=== PATIENT | female | born 1995 | race Two or more races ===

== ENCOUNTER 2021-02-26 01:30 | Emergency (ER) | payer MEDICAID, OTHER ==
[~2021-02-26] VITALS: Ht 149.9 cm; Wt 72.6 kg
[2021-02-26 04:12] LABS: Basophils # (auto) 0.1 10 ^3/uL (0-0.2); Basophils % (auto) 0.9 % (0.0-2.0); Eosinophils # (auto) 0.1 10 ^3/uL (0-0.8); Eosinophils % (auto) 1.7 % (0.0-7.0); Hematocrit 40.2 % (36.0-46.0); Hemoglobin 13.8 g/dL (12.2-16.2); Lymphocytes # (auto) 4.2 10 ^3/uL (0.4-5.4); Lymphocytes % (auto) 49.3 % (10.0-50.0); Mean Corpuscular Hemoglobin 29.5 pg (28.0-32.0); Mean Corpuscular Hgb Conc. 34.3 g/dL (32.0-36.0); Monocytes # (auto) 0.5 10 ^3/uL (0-1.3); Monocytes % (auto) 6.1 % (0.0-12.0); Neutrophils # (auto) 3.6 10 ^3/uL (1.6-8.6); Nucleated Red Blood Cells % 0.3 %; Red Blood Cells 4.68 10^6/uL (4.0-5.20); Red Cell Distribution Width 13.9 % (11.8-14.3); White Blood Cell 8.5 10^3/uL (4.4-10.8)
[2021-02-26 04:17] LABS: Potassium 3.6 mmol/L (3.5-5.1)
[2021-02-26 04:23] LABS: Albumin 3.5 g/dL (3.4-5.0); BUN/Creatinine Ratio 16.7; Bilirubin, Total 0.2 mg/dL (0.2-1.0); Calcium 8.6 mg/dL (8.5-10.1)
[2021-02-26 05:18] LABS: Urine Bacteria FEW /hpf (None Seen); Urine Blood Negative /uL (Negative); Urine Mucus FEW (None Seen); Urine Specific Gravity 1.019 (1.001-1.035); Urine WBC 28 /hpf (0 - 5)
[2021-02-26] MEDS ORDERED: DIPHENOXYLATE W/ATROPINE 2.5 MG TAB PO ONE (06:45)
[2021-02-26] MEDS ORDERED: SODIUM CHLORIDE 0.9% 1,000 ML IV ONE (06:45)
[2021-02-26 08:59] VITALS: BP 128/76
== END 2021-02-26 09:04 | disposition home or self-care (01) ==
LOC: ER 01:33
DX: K52.9 Noninfective gastroenteritis and colitis, unspecified (principal); N39.0 Urinary tract infection, site not specified
CPT/HCPCS: 36415; 80053; 81001; 84484; 85025; 96360; 99283; J7030

== ENCOUNTER 2023-01-29 13:40 | Emergency (ER) | payer MEDICAID ==
[~2023-01-29] VITALS: Ht 149.9 cm; Wt 80.4 kg
[2023-01-29 13:40] VITALS: BP 114/71; PULSE 102; RESP 16; TEMP 98.7; O2SAT 99
[2023-01-29 15:24] LABS: Basophils # (auto) 0 10 ^3/uL (0-0.2); Basophils % (auto) 0.2 % (0.0-2.0); Eosinophils # (auto) 0.1 10 ^3/uL (0-0.8); Eosinophils % (auto) 1.3 % (0.0-7.0); Hematocrit 42.1 % (36.0-46.0); Hemoglobin 14.1 g/dL (12.2-16.2); Lymphocytes # (auto) 4.4 10 ^3/uL (0.4-5.4); Lymphocytes % (auto) 41.9 % (10.0-50.0); Mean Corpuscular Hemoglobin 29.1 pg (28.0-32.0); Mean Corpuscular Hgb Conc. 33.5 g/dL (32.0-36.0); Mean Corpuscular Volume 86.9 fL (80.0-100.0); Monocytes # (auto) 0.7 10 ^3/uL (0-1.3); Monocytes % (auto) 6.4 % (0.0-12.0); Neutrophils # (auto) 5.3 10 ^3/uL (1.6-8.6); Neutrophils % (auto) 50.2 % (37.0-80.0); Nucleated Red Blood Cells % 0.1 %; Red Blood Cells 4.85 10^6/uL (4.0-5.20); Red Cell Distribution Width 14.9 % (11.8-14.3); White Blood Cell 10.6 10^3/uL (4.4-10.8)
[2023-01-29 16:40] LABS: Urine Bacteria FEW /hpf (None Seen); Urine Blood 1+ /uL (Negative); Urine Budding Yeast OCCASIONAL /hpf (None Seen); Urine Clarity HAZY (Clear); Urine Color Yellow (Yellow); Urine Protein, UAD Negative (Negative); Urine Specific Gravity 1.023 (1.001-1.035); Urine Urobilinogen Normal (Negative); Urine WBC 5 /hpf (0 - 5)
== END 2023-01-29 16:35 | disposition home or self-care (01) ==
LOC: ER 13:40
DX: O20.0 Threatened abortion (principal); Z3A.00 Weeks of gestation of pregnancy not specified
CPT/HCPCS: 36415; 76801; 76817; 81001; 81025; 84702; 85025

== ENCOUNTER 2023-02-05 12:24 | Emergency (ER) | payer MEDICAID ==
[~2023-02-05] VITALS: Ht 149.9 cm; Wt 80.2 kg
[2023-02-05 12:35] VITALS: BP 116/73; PULSE 78; RESP 16; O2SAT 99
[2023-02-05 13:12] LABS: Urine Bacteria NONE SEEN /hpf (None Seen); Urine Blood 3+ /uL (Negative); Urine Clarity HAZY (Clear); Urine Color Yellow (Yellow); Urine Mucus FEW (None Seen); Urine Protein, UAD 1+ (Negative); Urine WBC 6 /hpf (0 - 5)
[2023-02-05 13:15] LABS: Basophils # (auto) 0 10 ^3/uL (0-0.2); Basophils % (auto) 0.3 % (0.0-2.0); Eosinophils # (auto) 0.1 10 ^3/uL (0-0.8); Eosinophils % (auto) 0.8 % (0.0-7.0); Hematocrit 41.9 % (36.0-46.0); Hemoglobin 14.1 g/dL (12.2-16.2); Lymphocytes # (auto) 3.3 10 ^3/uL (0.4-5.4); Lymphocytes % (auto) 36.7 % (10.0-50.0); Mean Corpuscular Hemoglobin 29.3 pg (28.0-32.0); Mean Corpuscular Hgb Conc. 33.8 g/dL (32.0-36.0); Mean Corpuscular Volume 86.9 fL (80.0-100.0); Monocytes # (auto) 0.4 10 ^3/uL (0-1.3); Monocytes % (auto) 4.9 % (0.0-12.0); Neutrophils # (auto) 5.2 10 ^3/uL (1.6-8.6); Neutrophils % (auto) 57.3 % (37.0-80.0); Nucleated Red Blood Cells % 0.1 %; Red Blood Cells 4.82 10^6/uL (4.0-5.20); Red Cell Distribution Width 14.5 % (11.8-14.3); White Blood Cell 9.1 10^3/uL (4.4-10.8)
[2023-02-05 13:53] LABS: Alanine Aminotransferase 17 U/L (7-40); Albumin 4.6 g/dL (3.2-4.8); Alkaline Phosphatase 78 U/L (46-116); Anion Gap 8 (5-15); Aspartate Aminotransferase 22 U/L (13-40); BUN/Creatinine Ratio 11.9 (10.0-20.0); Bilirubin, Total 0.5 mg/dL (0.2-1.0); Blood Urea Nitrogen 7 mg/dL (9-23); Calcium 9.3 mg/dL (8.5-10.1); Carbon Dioxide 23 mmol/L (20-30); Chloride 106 mmol/L (98-107); Glucose 115 mg/dL (74-106); Potassium 3.5 mmol/L (3.5-5.1); Sodium 137 mmol/L (136-145); Total Protein 7.8 g/dL (5.7-8.2)
[2023-02-05] MEDS ORDERED: CEPH250C PO (16:16)
== END 2023-02-05 17:17 | disposition home or self-care (01) ==
LOC: ER 12:24
DX: O23.41 Unspecified infection of urinary tract in pregnancy, first trimester (principal); R10.2 Pelvic and perineal pain; N39.0 Urinary tract infection, site not specified; E03.9 Hypothyroidism, unspecified; Z79.899 Other long term (current) drug therapy; Z3A.01 Less than 8 weeks gestation of pregnancy
CPT/HCPCS: 36415; 76801; 76817; 80053; 81001; 84702; 85025

== ENCOUNTER 2024-11-12 14:18 | Emergency (ER) | payer MEDICAID ==
[~2024-11-12] VITALS: Ht 149.9 cm; Wt 82.5 kg
[~2024-11-12 14:18] MED LIST: CEPH250C PO
[2024-11-12 15:54] LABS: Urine Protein, UAD Negative (Negative)
--- NOTE | 2024-11-12 16:04 | ED.PDOC ---
History of Present Illness HPI Comments 29 y/o F presents with 2x week history of nonradiating, lower abdominal pain. Patient reports unprovoked, atraumatic, and gradual onset of symptoms. Pain is constant but waning and cramping in quality. She rates it a 6.5/10 in severity. Patient mentions on, recently, discovering on being 3x weeks ago with her second ([id number]). Previous is reported to have been fine without complications carried to full-term and delivered vaginally. No nausea, vomiting, dysuria, or further associated symptoms. Chief Complaint: Pelvic Pain Time Seen by MD: 15:45 Primary Care Provider: HUGO Mas Notes: Nurses Notes, Medications, Allergies Allergies: Coded Allergies: NO KNOWN ALLERGIES (Unverified , 02/26/21) Home Meds Active Scripts Cephalexin (KEFLEX CAPSULE) 250 Mg Cp, 250 MG PO TID for 7 Days, #21 BOT Prov:JOSHUA VANN MD 02/05/23 Information Source: Patient Mode of Arrival: Ambulatory Severity: Moderate Timing: Weeks Duration: Since onset Prehospital treatment: None Past Medical History PAST MEDICAL HISTORY: Thyroid Surgical History: Denies all surgeries RESEARCH ENGINEER MARINE EQUIPMENT History: No Pertinent RESEARCH ENGINEER MARINE EQUIPMENT History Family History Family History: Reviewed,noncontributory to illness Social History Smoker: Non-Smoker Alcohol: Denies ETOH Use Drugs: Denies Drug Use Lives In: Home All Other Systems: Reviewed and Negative (As per HPI) Physical Exam General Appearance: No Apparent Distress HEENT: Normal ENT Inspection, PERRL/EOMI Neck: Full Range of Motion, Non-Tender, Normal, Normal Inspection Respiratory: Chest Non-Tender, Lungs Clear, No Accessory Muscle Use, No Respiratory Distress, Normal Breath Sounds Cardiovascular: No Edema, No JVD, No Murmur, No Gallop, Normal Peripheral Pulses, Regular Rate/Rhythm Breast Exam: Deferred Gastrointestinal: No Organomegaly, Non Tender, No Pulsatile Mass, Normal Bowel Sounds, Soft Genitalia: Deferred Pelvic: Deferred Rectal: Deferred Extremities: No calf tenderness, Normal capillary refill, Normal inspection, Normal range of motion, Non-tender, No pedal edema Neurologic: Alert, gift wrapper II-XII nml as Tested, No Motor Deficits, Normal Affect, Normal Mood, No Sensory Deficits Cerebellar Function: Normal Reflexes: Normal Skin: Dry, Normal Color, Warm Lymphatic: No Adenopathy Was a procedure done? Was a procedure done?: No Differential Dx Considerations may include: at risk , PID, ovarian cysts, ovarian torsion, diverticulitis, gastritis, UTI, among others X-Ray, Labs, Meds, VS Vital Signs Date Time Temp Pulse Resp B/P (MAP) Pulse Ox O2 Delivery O2 Flow Rate FiO2 11/12/24 14:20 97.5 79 16 150/81 100 97.5 Lab Test 11/12/24 15:40 Range/Units Urine Color Light-yellow Yellow Urine Clarity Clear Clear Urine pH 6.0 5.0-9.0 Urine Specific [place] 1.027 1.001-1.035 Urine Protein Negative Negative Urine Ketones Negative Negative Urine Blood Negative Negative /uL Urine Nitrite Negative Negative Urine Bilirubin Negative Negative Urine Urobilinogen Normal Negative mg/dL Urine Leukocyte Esterase 1+ Negative /uL Urine RBC 2 0 - 4 /hpf Urine Microscopic WBC 3 0-5 /HPF Urine Squamous Epithelial Cells Few <5 /hpf Urine Bacteria None seen None Seen /hpf Urine Mucus Few None Seen Urine Glucose Normal Normal mg/dL X-Ray, Labs, Meds, VS Comment Course in the emergency department eventful patient came in complaining of pelvic pain she is two months The urine shows 1+ leukocyte esterase patient is on Keflex Physical exam is normal patient we will need to follow up with the retail delivery driver for ultrasound Time of 1ST Reevaluation: 16:20 Reevaluation 1ST: Unchanged Time of 2ND Reevaluation: 16:13 Reevaluation 2ND: Improved Consultation: PCP, credit resolution representative Patient Education/Counseling: Diagnosis, Treatment, Prognosis, Need For Follow Up Family Education/Counseling: Diagnosis, Treatment, Prognosis, Need For Follow Up, No Family Present SEPSIS Sepsis Screen Date sepsis recognized/suspect: Nov 12, 2024 Time Sepsis recognized/suspect: 1423 Recent Procedure: No On Antibiotic Therapy: No Respiratory Rate >20: No Heart Rate >90: No Temp<36 C (96.8 F) or >38.3 C: No SBP <90 or MAP <65 mmHG: No New Acute Mental Status Change: No Is the patient on CPAP, BIPAP,: No Vital Signs Date Time Temp Pulse Resp B/P (MAP) Pulse Ox O2 Delivery O2 Flow Rate FiO2 11/12/24 14:20 97.5 79 16 150/81 100 97.5 Departure 1 Departure Time of Disposition: 16:09 Impression: Primary Impression: Qualified Codes: Z3A.01 - Less than 8 weeks gestation of Additional Impressions: UTI (urinary tract infection) Qualified Codes: N30.00 - Acute cystitis without hematuria Musculoskeletal pain Disposition: 01 HOME / SELF CARE / HOMELESS Condition: Good Additional Instructions: Continue present medication Discharged With: Self Critical Care Note Critical Care Time?: No Stability Stability form required: No Heart Score Heart Score: Heart Score Response (Comments) Value History N/A 0 EKG N/A 0 Age <45 0 Risk Factors No known risk factors 0 Troponin N/A 0 Total 0 I personally scribed for MARIA D GOMEZ MD ([email or web address]) on 11/12/24 at 16:04. Electronically submitted by Pacheco Shaw ([email or web address]). MARIA D GOMEZ MD Nov 12, 2024 16:04
--- NOTE | 2024-11-12 16:05 | ED.PDOC ---
General Chief Complaint: Pelvic Pain Time Seen by MD: 14:57 Primary Care Provider: HUGO Allergies: Coded Allergies: NO KNOWN ALLERGIES (Unverified , 02/26/21) Home Meds Active Scripts Cephalexin (KEFLEX CAPSULE) 250 Mg Cp, 250 MG PO TID for 7 Days, #21 BOT Prov:JOSHUA VANN MD 02/05/23 Mode of Arrival: Ambulatory Past Medical History PAST MEDICAL HISTORY: Thyroid Surgical History: Denies all surgeries GEOTECHNICAL ENGINEERING TECHNICIAN History: No Pertinent GEOTECHNICAL ENGINEERING TECHNICIAN History Family History Family History: Reviewed,noncontributory to illness Social History Smoker: Non-Smoker Alcohol: Denies ETOH Use Drugs: Denies Drug Use Lives In: Home Physical Exam General Appearance: No Apparent Distress HEENT: Normal ENT Inspection, Pharynx Normal, TMs Normal Neck: Full Range of Motion, Non-Tender, Normal, Normal Inspection Respiratory: Chest Non-Tender, Lungs Clear, No Accessory Muscle Use, No Respiratory Distress, Normal Breath Sounds Cardiovascular: No Edema, No JVD, No Murmur, No Gallop, Normal Peripheral Pulses, Regular Rate/Rhythm Breast Exam: Deferred Gastrointestinal: No Organomegaly, Non Tender, No Pulsatile Mass, Normal Bowel Sounds, Soft Genitalia: Deferred Pelvic: Deferred Rectal: Deferred Extremities: No calf tenderness, Normal capillary refill, Normal inspection, Normal range of motion, Non-tender, No pedal edema Neurologic: Alert, electronics department manager II-XII nml as Tested, No Motor Deficits, Normal Affect, Normal Mood, No Sensory Deficits Cerebellar Function: Normal Reflexes: Normal Skin: Dry, Normal Color, Warm Peripheral Pulses: 1+ carotid (R), 1+ carotid (L) Lymphatic: No Adenopathy Was a procedure done? Was a procedure done?: No Differential Diagnosis Kidney stone (Female): Musculoskeletal pain Kidney stone (Male): N/A Penile/Scrotal: N/A Urinary Problem (Male): N/A Urinary Problem (Female): UTI X-Ray, Labs, Meds, VS Vital Signs Date Time Temp Pulse Resp B/P (MAP) Pulse Ox O2 Delivery O2 Flow Rate FiO2 11/12/24 17:00 72 18 97 Room Air 11/12/24 17:00 98.0 72 18 136/74 (94) 97 98.0 11/12/24 14:20 97.5 79 16 150/81 100 97.5 Lab Test 11/12/24 15:40 Range/Units Urine Color Light-yellow Yellow Urine Clarity Clear Clear Urine pH 6.0 5.0-9.0 Urine Specific [place] 1.027 1.001-1.035 Urine Protein Negative Negative Urine Ketones Negative Negative Urine Blood Negative Negative /uL Urine Nitrite Negative Negative Urine Bilirubin Negative Negative Urine Urobilinogen Normal Negative mg/dL Urine Leukocyte Esterase 1+ Negative /uL Urine RBC 2 0 - 4 /hpf Urine Microscopic WBC 3 0-5 /HPF Urine Squamous Epithelial Cells Few <5 /hpf Urine Bacteria None seen None Seen /hpf Urine Mucus Few None Seen Urine Glucose Normal Normal mg/dL X-Ray, Labs, Meds, VS Comment Patient came in with pelvic pain The beta hCG was very low patient exam is normal She will need to go follow up with your PCP and telecommunications analyst Time of 1ST Reevaluation: 14:57 Reevaluation 1ST: Unchanged Time of 2ND Reevaluation: 15:40 Reevaluation 2ND: Improved Consultation: PCP, jigger machine operator Patient Education/Counseling: Diagnosis, Treatment, Prognosis, Need For Follow Up Family Education/Counseling: Diagnosis, Treatment, Prognosis, Need For Follow Up, No Family Present SEPSIS Sepsis Screen Date sepsis recognized/suspect: Nov 12, 2024 Time Sepsis recognized/suspect: 1423 Recent Procedure: No On Antibiotic Therapy: No Respiratory Rate >20: No Heart Rate >90: No Temp<36 C (96.8 F) or >38.3 C: No SBP <90 or MAP <65 mmHG: No New Acute Mental Status Change: No Is the patient on CPAP, BIPAP,: No Vital Signs Date Time Temp Pulse Resp B/P (MAP) Pulse Ox O2 Delivery O2 Flow Rate FiO2 11/12/24 17:00 72 18 97 Room Air 11/12/24 17:00 98.0 72 18 136/74 (94) 97 98.0 11/12/24 14:20 97.5 79 16 150/81 100 97.5 Departure 1 Departure Time of Disposition: 16:05 Impression: Primary Impression: Additional Impressions: Musculoskeletal pain Vaginal spotting Disposition: 01 HOME / SELF CARE / HOMELESS Condition: Fair Additional Instructions: Follow up with your coin box collector Discharged With: Self Critical Care Note Critical Care Time?: No Stability Stability form required: No Heart Score Heart Score: Heart Score Response (Comments) Value History N/A 0 EKG N/A 0 Age <45 0 Risk Factors No known risk factors 0 Troponin N/A 0 Total 0 MARIA D GOMEZ MD Nov 12, 2024 16:05
[2024-11-12 17:00] VITALS: BP 136/74; PULSE 72; RESP 18; TEMP 98; O2SAT 97
== END 2024-11-12 17:15 | disposition home or self-care (01) ==
LOC: ER 14:27
DX: O26.851 Spotting complicating pregnancy, first trimester (principal); O26.891 Other specified pregnancy related conditions, first trimester; M79.18 Myalgia, other site; Z3A.09 9 weeks gestation of pregnancy
CPT/HCPCS: 81001

== ENCOUNTER 2025-01-11 06:02 | Observation (INO) | payer MEDICAID ==
[~2025-01-11] VITALS: Ht 170.2 cm; Wt 88.6 kg
--- NOTE | 2025-01-11 06:09 | ED.PDOC ---
TOP TRIMMER HPI Comments Initial Vitals BP: 121/84 HR: 84 RR: 17 O2: 96% Temp: 98.6F Past Medical History: Thyroid Disease Past Surgical History: Denies Social History: Denies ETOH, smoking, and drug use. Medications: Reviewed Allergies: NKDA HPI: Poor Historian. 29-year-old female brought in by ambulance from home for lower abdominal pain with the associated mild vaginal bleed. His pain started last night. No recent intercourse. No history of STDs. Patient is 16 weeks gestation with no past medical history. Patient has seen her OB Gyne doctor a week and a half ago and he is on cares. Patient denies any use of drugs or alcohol. REVIEW OF SYSTEMS: CONSTITUTIONAL: Denies acute: fever, diaphoresis, chills, generalized weakness. HEAD: Denies acute: headache, photophobia Eyes: Denies acute: Double vision, vision loss, eye pain, eye discharge. EARS: Denies acute: tinnitus, hearing loss, ear discharge, ear pain, THROAT: Denies acute: sore throat, swelling, difficulty swallowing , pain with swallowing, change in voice. NECK: Denies acute: neck pain, neck swelling, stiff neck. HEART: Denies acute : chest pain, palpitations, LUNGS: Denies acute: SOB, wheezing, cough, hemoptysis ABDOMEN: Denies acute: Nausea, Vomiting, diarrhea, melena , hematemesis, hematochezia SKIN: Denies acute: rash, redness, lesions, itchiness. EXTREMITIES: Denies acute: calf pain, numbness, tingling, weakness, denies pain in extremity. Denies acute: Low back pain. Neuro: Denies acute: focal neurological deficit, motor or sensory focal neurological deficit, tremors, seizure like activity, confusion, dizziness, change in mental status, loss of bowel or bladder function, cauda equina like symptoms. : Denies acute: dysuria, hematuria, flank pain, increase in urinary frequency. PSYCH: Denies acute: hallucination, suicidal ideation, homicidal ideation. FEMALE: Denies acute: foul odor, unusual discharge. PHYSICAL EXAM: General: ----mild---acute distress, awake and alert. Head: normocephalic, atraumatic. Neck: supple, trachea is midline, no swelling. Throat: Normal phonation. Eyes:, no erythema, no purulent discharge, no proptosis, no icterus. Heart: regular rate, regular rhythm, no significant murmur appreciated. Lungs: no apparent respiratory distress, Able to speak in full sentences. No wheezing, no rhonchi, no crackles. No stridors Clear to auscultation bilaterally. Abdomen: non tender to palpation, non distended, soft, no guarding, no rebound, + bowel sounds. Neuro: Awake, Alert, oriented to name, self, situation, follows commands GCS=15. Speech is normal. Skin: no petechia, no purpura, no cyanosis, non-pale, not jaundice. Lower extremities: --no - Pitting edema no deformity, no focal swelling, no calf TTP. Makes eye contact. moves all four extremities. Face: no apparent facial droop. ED COURSE: DISCLAIMER: This medical document was created using an electronic medical record system with voice recognition software and computerized dictation system. Although this document has been carefully reviewed, there might still be some phonetic and typographical errors. Occasional wrong-word or "sound-alike" substitutions may have occurred due to the inherent limitations of voice recognition software. These areas are purely typographical due to imperfections of the software programs and do not reflect any compromise in the patient's medical care. Please read the chart carefully and recognize, using context, where these substitutions have occurred. Time Seen by MD: 06:06 Reviewed Notes: Medications, Allergies Allergies: Coded Allergies: NO KNOWN ALLERGIES (Unverified , 02/26/21) Home Meds Active Scripts Docusate Sodium (Colace) 100 Mg Cap, 1 CAP PO BID PRN, #30 CAP Prov:JD MANCUSO [facility] 01/11/25 Hydrocodone-Acetaminophen (Hydrocodone Bitartrate/AC 5-325 mg) 1 Tab Tab, 1 TAB PO Q6HR PRN for 5 Days, #20 TAB Prov:JD MANCUSO 01/11/25 Ibuprofen (Ibuprofen) 800 Mg Tab, 1 TAB PO TID, #60 TAB 0 Refills Prov:JD MANCUSO 01/11/25 Discontinued Scripts Cephalexin (KEFLEX CAPSULE) 250 Mg Cp, 250 MG PO TID for 7 Days, #21 BOT Prov:JOSHUA VANN MD 02/05/23 Information Source: Patient, Emergency Med Personnel Mode of Arrival: EMS Was a procedure done? Was a procedure done?: No Differential Diagnosis (CARRIER OPERATOR) Vaginal Bleeding: - Complete, - Incomplete, - Inevitable, - Missed, - Threatened, Abruptio Placentae, Blood Loss Anemia, Dysmenorrhea, Ectopic , Hormonal, Menorrhagia, Menometrorrhagia, Menstrual Bleeding, Myomatous Uterus, PID, Placenta Previa, Precipitous Hct, Trauma X-Ray, Labs, Meds, VS Vital Signs Date Time Temp Pulse Resp B/P (MAP) Pulse Ox O2 Delivery O2 Flow Rate FiO2 01/11/25 06:05 98.6 84 17 121/84 96 98.6 Lab Test 01/11/25 06:31 Range/Units White Blood Count 10.7 4.4-10.8 10^3/uL Red Blood Count 4.61 4.0-5.20 10^6/uL Hemoglobin 13.3 12.2-16.2 g/dL Hematocrit 38.5 36.0-46.0 % Mean Corpuscular Volume 83.6 80.0-100.0 fL Mean Corpuscular Hemoglobin 29.0 28.0-32.0 pg Mean Corpuscular Hemoglobin Concent 34.7 32.0-36.0 g/dL Red Cell Distribution Width 15.0 H 11.8-14.3 % Platelet Count 339 140-450 10^3/uL Mean Platelet Volume 8.1 6.9-10.8 fL Neutrophils (%) (Auto) 59.2 37.0-80.0 % Lymphocytes (%) (Auto) 33.5 10.0-50.0 % Monocytes (%) (Auto) 4.2 0.0-12.0 % Eosinophils (%) (Auto) 2.8 0.0-7.0 % Basophils (%) (Auto) 0.3 0.0-2.0 % Neutrophils # (Auto) 6.3 1.6-8.6 10 ^3/uL Lymphocytes # (Auto) 3.6 0.4-5.4 10 ^3/uL Monocytes # (Auto) 0.5 0-1.3 10 ^3/uL Eosinophils # (Auto) 0.3 0-0.8 10 ^3/uL Basophils # (Auto) 0 0-0.2 10 ^3/uL Nucleated Red Blood Cells 0.0 % Sodium Level 137 136-145 mmol/L Potassium Level 3.9 3.5-5.1 mmol/L Chloride Level 105 98-107 mmol/L Carbon Dioxide Level 19 L 20-31 mmol/L Anion Gap 13 5-15 Blood Urea Nitrogen 8 L 9-23 mg/dL Creatinine 0.49 L 0.550-1.02 mg/dL Glomerular Filtration Rate Calc 129 >90 mL/min BUN/Creatinine Ratio 16.3 10.0-20.0 Serum Glucose 105 74-106 mg/dL Calcium Level 8.8 8.7-10.4 mg/dL Total Bilirubin 0.2 0.2-1.0 mg/dL Aspartate Amino Transferase (AST) 24 13-40 U/L Alanine Aminotransferase (ALT) 13 7-40 U/L Alkaline Phosphatase 97 46-116 U/L Total Protein 7.0 5.7-8.2 g/dL Albumin 4.0 3.2-4.8 g/dL Beta HCG, Quantitative 92715.0 H 1.5-4.2 mIU/mL [place] [id number] Ph: [phone] DIAGNOSTIC IMAGING Diagnostic Imaging Report : [id number] Signed PATIENT: TERESE HAYES ACCT: [id number] UNIT: [id number] : 1995 LOC: [facility] ROOM / BED: [facility] / A AGE / SEX: 29 / F ADM STATUS: ADM IN SERVICE [id number] ORDERING PHYSICIAN: ROMI CHRISTIANSON DO PROCEDURE(s): OBUS - OB ULTRASOUND COMP GTR 14 WKS REASON: vag bleed 16 weeks ORDER NUMBER(s): [id number], ACCESSION NUMBER(s): [id number] LIMITED OB ULTRASOUND > 14 WKS: HISTORY: vag bleed 16 weeks TECHNIQUE: Multiple real-time grayscale images of the gravid uterus with duplex Doppler color flow and M-mode spectral analysis. FINDINGS: There is an intrauterine gestation which measures 15 weeks 0 days based on composite averages of the BPD, head circumference, abdominal circumference and femur length. The fetus is in breech position. Estimated weight 102 grams. heart rate 106 beats per minute SALMA is not measured Cervix is open and contains a portion of the fetus including the neck and body, down to the feet Posterior placenta which is incompletely evaluated. IMPRESSION: 1. Single living intrauterine gestation measuring 15 weeks 0 days with heart rate of 106 bpm. 2. The cervix is open and contains majority of the body down to the feet. ATED BY: NADIYA NAIDU MD DICTATED DATE/TIME: 01/11/25743 SIGNED BY: NADIYA NAIDU MD SIGNED DATE/TIME: 01/11/25743 CC: Time of 1ST Reevaluation: 07:08 Reevaluation 1ST: Unchanged Time of 2ND Reevaluation: 07:13 (The recycling technician came and said that the patient cervix is open and the feet is sticking out. OB Gyne was consulted. They said to send the patient directly to [facility]. ) Patient Education/Counseling: Diagnosis, Treatment Family Education/Counseling: No Family Present Comments MDM: patient presented with the above HPI.------workup was initiated. patient was found with the above mentioned diagnosis. the following medications were ordered: please refer to order lists of meds and tests obtained by myself Dr. Christianson. Patient ED course and VS have been stabilized. Patient has been reassessed in the ED and remained in a stable condition. Pertinent incidental findings were discussed with the patient and/or family. Patient/family voices understanding and is agreeable with plan. Patient has been observed in the ED adequate length of time to insure improvement/stability. Escalation of care considered: Consideration of escalation to observation or admission OB Gyne was consulted stat. Patient was taken to labor and delivery. Subsequently a D&C was performed. Patient was ADMITTED to the medicine team for further evaluation and treatment of their presentation. All the reports of any imaging studies that were ordered by myself were reviewed by myself. Departure 1 Departure Time of Disposition: 07:13 Impression: Primary Impression: Threatened in first trimester Additional Impression: Vaginal bleeding during Disposition: ADMITTED INPATIENT Admit to: Tele Condition: Guarded e-Prescriptions Docusate Sodium (Colace) 100 Mg Cap 1 CAP PO BID PRN, #30 CAP Prov: JD MANCUSO [facility] 01/11/25 Hydrocodone-Acetaminophen (Hydrocodone Bitartrate/AC 5-325 mg) 1 Tab Tab 1 TAB PO Q6HR PRN for 5 Days, #20 TAB Prov: JD MANCUSO [facility] 01/11/25 Ibuprofen (Ibuprofen) 800 Mg Tab 1 TAB PO TID, #60 TAB 0 Refills Prov: JD MANCUSO [facility] 01/11/25 Discharged With: Self Critical Care Note Critical Care Time?: Yes (1 hr-critical care time only) I personally scribed for ROMI CHRISTIANSON DO ([email or web address]) on 01/11/25 at 06:40. Electronically submitted by Yan Adams ([email or web address]). ROMI CHRISTIANSON DO Jan 11, 2025 06:09
[2025-01-11 07:01] LABS: Hematocrit 38.5 % (36.0-46.0); Hemoglobin 13.3 g/dL (12.2-16.2); Mean Corpuscular Hemoglobin 29.0 pg (28.0-32.0); Mean Corpuscular Volume 83.6 fL (80.0-100.0); Nucleated Red Blood Cells % 0.0 %
[2025-01-11 07:26] LABS: BUN/Creatinine Ratio 16.3 (10.0-20.0)
[2025-01-11 07:27] LABS: Alanine Aminotransferase 13 U/L (7-40); Albumin 4.0 g/dL (3.2-4.8); Alkaline Phosphatase 97 U/L (46-116); Anion Gap 13 (5-15); Blood Urea Nitrogen 8 mg/dL (9-23); Calcium 8.8 mg/dL (8.7-10.4); Carbon Dioxide 19 mmol/L (20-31); Chloride 105 mmol/L (98-107); Glucose 105 mg/dL (74-106); Potassium 3.9 mmol/L (3.5-5.1); Sodium 137 mmol/L (136-145); Total Protein 7.0 g/dL (5.7-8.2)
[2025-01-11 07:45] LABS: Bilirubin, Total 0.2 mg/dL (0.2-1.0)
[2025-01-11] MEDS ORDERED: BUTORPHANOL TARTRATE 2 MG/1 ML VIAL IV PRN (07:45)
--- NOTE | 2025-01-11 07:46 | DVH ---
LIMITED OB ULTRASOUND > 14 WKS: HISTORY: vag bleed 16 weeks TECHNIQUE: Multiple real-time grayscale images of the gravid uterus with duplex Doppler color flow an d M-mode spectral analysis. FINDINGS: There is an intrauterine gestation which measures 15 weeks 0 days based on composite averages of the BPD, head circumference, abdominal circumference and femur length. The fetus is in breech position. Estimated weight 102 grams. heart rate 106 beats per minute SALMA is not measured Cervix is open and contains a portion of the fetus including the neck and body, down to the feet Posterior placenta which is incompletely evaluated. IMPRESSION: 1. Single living intrauterine gestation measuring 15 weeks 0 days with heart rate of 106 bpm. 2. The cervix is open and contains majority of the body down to the feet.
[2025-01-11] MEDS: BUTORPHANOL TARTRATE 2 MG/1 ML VIAL IV PRN (07:54)
[2025-01-11] MEDS: LACTATED RINGER'S 1,000 ML IV SCH (07:54)
[2025-01-11] MEDS: PHISODERM TOP SOLN 240ML BTL TOP PRN (08:19)
[2025-01-11] MEDS: ceFAZolin 2 GM/D5W50ml 50 ML IV ONE (08:19)
[2025-01-11] MEDS: WITCH HAZEL-GLYCERIN PAD TOP PRN (08:19)
[2025-01-11] MEDS: DERMOPLAST 60ML BOTTLE TOP PRN (08:19)
--- NOTE | 2025-01-11 08:21 | DVHHP2 ---
OB CC & HPI Date Date of Admission: Jan 11, 2025 Patient Identification: : 2 Para: 1 EDC: Jun 25, 2025 EGA: 16wks Chief Complaints: Reason for admission: labor, vaginal bleeding Admission Nurse Assessment Rev: No History of Present Complaints pt presents with vag bleeding and abd pain .pelvic us reveals breech baby in vag cervix fully dilated.pt denies any issues with preg Past Medical History Cardiac: No pertinent Hx Pulmonary: No pertinent Hx Central Nervous System: No pertinent Hx GI: No pertinent Hx Hemotology/Oncology: No pertinent Hx Hepatobiliary: No pertinent Hx Psychiatric: No pertinent Hx Musculoskeletal: No pertinent Hx Rheumotologic: No pertinent Hx Infectious Disease: No peritnent Hx ENT: No pertinent Hx Renal/: No pertinent Hx Endocrine: No pertinent Hx Dermatology: No pertinent Hx Past Surgical History: No pertinent Hx OB History OB History Care: Limited Care Obstetrical Complications: None, Other (thyroid ds) Medical Complications: None Allergies: Coded Allergies: NO KNOWN ALLERGIES (Unverified , 02/26/21) Home Meds Active Scripts Cephalexin (KEFLEX CAPSULE) 250 Mg Cp, 250 MG PO TID for 7 Days, #21 BOT Prov:JOSHUA VANN MD 02/05/23 Current Medications Current Medications Medications (Trade) Dose Ordered Sig/Ne Route PRN Reason Start Time Stop Time Status Last Admin Lactated Ringer's 1,000 ml @ 125 mls/hr Q8H IV 01/11/25 07:45 01/11/25 07:54 Witch Deloris (Tucks) 1 pad PRN PRN TOP PERINEAL AREA DISCOMFORT 01/11/25 07:45 Sodium Lauryl Sulfate (Phisoderm) 240 ml PRN PRN TOP PERINEAL AREA DISCOMFORT 01/11/25 07:45 Benzocaine (Dermoplast) 1 applic PRN PRN TOP PERINEAL AREA DISCOMFORT 01/11/25 07:45 Butorphanol Tartrate (Stadol Injection) 1 mg Q4HPRN PRN IV MODERATE PAIN (4-6 PAIN SCALE) 01/11/25 07:45 Butorphanol Tartrate (Stadol Injection) 2 mg Q4HPRN PRN IV SEVERE PAIN (7-10 PAIN SCALE) 01/11/25 07:45 01/11/25 07:54 Lidocaine HCl (Xylocaine) 20 ml ONCE PRN IJ PERINEAL AREA DISCOMFORT 01/11/25 07:45 Terbutaline Sulfate (Brethine Inj) 0.25 mg ONCE PRN SC Uterine tachysystole 01/11/25 07:45 Family & Social History Family/Social History Blood Type: Unknown Rubella: unknown RPR/VDRL: Unknown GBS Status: Unknown HBsAG: Unknown Review of Systems Constitutional: No symptom reported Ears, Nose, & Throat: No symptom reported Eyes: No symptom reported Pulmonary/Respiratory: No symptom reported Cardiovascular: No symptom reported Gastrointestinal: No symptom reported Genitourinary: No symptom reported Musculoskeletal: No symptom reported Skin: No symptom reported Psychiatric: No symptom reported Endocrine: No symptom reported Hemotologic/Lymphatic: No symptom reported OB Admission Exam Physical Exam Vitals: Vital Signs Date Time Temp Pulse Resp B/P (MAP) Pulse Ox O2 Delivery O2 Flow Rate FiO2 01/11/25 07:54 98 18 122/79 01/11/25 06:05 98.6 96 98.6 HEENT: TMs Normal, Fontanelles Normal, Nasal Mucosa Normal, Eyes non-injected, Oropharynx Normal, PERRLA, Moist Membranes, EOMI Heart: Rhythm Normal Lungs: Clear Abdomen: Non tender Extremities: Normal Reflexes: Normal Cervical Dilatation: 9cm Effacement: 100% Station: +2 Membranes: Intact Heart Rate: 130's Intensity: Moderate OB Plan Plan Admitting Diagnosis: iup at 16wks with vag bleeding inevtable ab Plan: Expectant Management Other Plan: informed consent obtained,all options d/w pt .pt is fully aware that she is going to lose preg Visit Coding OBGYN Date of Service: Jan 11, 2025 Billing Provider: GRICELDA ALBARRAN DO DYNAMICIST Common Visit Codes: [id number] OBS CARE (HIGH) GRICELDA ALBARRAN DO Jan 11, 2025 08:21
[2025-01-11 08:31] LABS: Hematocrit 38.7 % (36.0-46.0); Hemoglobin 13.1 g/dL (12.2-16.2); Mean Corpuscular Hemoglobin 28.3 pg (28.0-32.0); Mean Corpuscular Volume 83.6 fL (80.0-100.0); Nucleated Red Blood Cells % 0.0 %
[2025-01-11 08:49] LABS: Alanine Aminotransferase 11 U/L (7-40); Albumin 4.1 g/dL (3.2-4.8); Alkaline Phosphatase 93 U/L (46-116); Anion Gap 12 (5-15); BUN/Creatinine Ratio 12.5 (10.0-20.0); Calcium 8.8 mg/dL (8.7-10.4); Carbon Dioxide 21 mmol/L (20-31); Chloride 104 mmol/L (98-107); Sodium 137 mmol/L (136-145); Total Protein 7.5 g/dL (5.7-8.2)
[2025-01-11 08:52] LABS: Bilirubin, Total 0.2 mg/dL (0.2-1.0); Blood Urea Nitrogen 7 mg/dL (9-23); Glucose 115 mg/dL (74-106); Potassium 3.4 mmol/L (3.5-5.1)
[2025-01-11 09:10] LABS: INR 0.94 (0.9-1.15); Partial Thromboplastin Time 25.9 SEC (24.5-34.5); Prothrombin Time 10.0 sec (9.3-11.8)
--- NOTE | 2025-01-11 09:58 | DVHPN2 ---
Chief Complaints Patient reports: No new complaints Nursing reports: No new complaints Objective Vitals Vital Signs Date Time Temp Pulse Resp B/P (MAP) Pulse Ox O2 Delivery O2 Flow Rate FiO2 01/11/25 07:54 98 18 122/79 01/11/25 06:05 98.6 96 98.6 Medications Current Medications Medications (Trade) Dose Ordered Sig/Ne Route PRN Reason Start Time Stop Time Status Last Admin Benzocaine (Dermoplast) 1 applic PRN PRN TOP PERINEAL AREA DISCOMFORT 01/11/25 07:45 01/11/25 08:19 Butorphanol Tartrate (Stadol Injection) 1 mg Q4HPRN PRN IV MODERATE PAIN (4-6 PAIN SCALE) 01/11/25 07:45 Butorphanol Tartrate (Stadol Injection) 2 mg Q4HPRN PRN IV SEVERE PAIN (7-10 PAIN SCALE) 01/11/25 07:45 01/11/25 07:54 Lactated Ringer's 1,000 ml @ 125 mls/hr Q8H IV 01/11/25 07:45 01/11/25 07:54 Lidocaine HCl (Xylocaine) 20 ml ONCE PRN IJ PERINEAL AREA DISCOMFORT 01/11/25 07:45 Sodium Lauryl Sulfate (Phisoderm) 240 ml PRN PRN TOP PERINEAL AREA DISCOMFORT 01/11/25 07:45 01/11/25 08:19 Terbutaline Sulfate (Brethine Inj) 0.25 mg ONCE PRN SC Uterine tachysystole 01/11/25 07:45 Witch Deloris (Tucks) 1 pad PRN PRN TOP PERINEAL AREA DISCOMFORT 01/11/25 07:45 01/11/25 08:19 Others ve-unchanged Studies Laboratory Tests 01/11/25 07:58 Test 01/11/25 07:58 Range/Units Serum Glucose 115 H 74-106 mg/dL Ass/Plan Assessment inevitable ab Plan supportive care Visit Coding OBGYN Date of Service: Jan 11, 2025 Billing Provider: GRICELDA ALBARRAN DO SANTA'S HELPER Common Visit Codes: 00864-[id number] INP/OBS CARE(HIGH) S[employer] HELPER Procedure Codes: 72600-00- NON-STRESS TEST GRICELDA ALBARRAN DO Jan 11, 2025 09:58
[2025-01-11] MEDS ORDERED: ACETAMINOPHEN 325 MG TAB PO PRN (11:45)
[2025-01-11] MEDS ORDERED: ONDANSETRON ODT 4 MG TAB PO PRN (11:45)
[2025-01-11] MEDS: IBUPROFEN 600 MG TAB PO PRN (11:59)
--- NOTE | 2025-01-11 13:07 | DVH ---
Technique: Real-time ultrasound images through the pelvis using a transabdominal transducer. Indication: Placenta fragments Comparison: None Findings: The uterus measures 12.1 cm. Large echogenic region within the endometrial canal measuring 5.1 x 5.1 cm that is heterogeneous in appearance. Bilateral ovaries nonvisualized. There is no significant free fluid in the pelvis. Impression: Large echogenic region within the endometrial complex measuring 5.1 x 5.1 cm that could represent ret ained products conception/retained placenta. Bilateral ovaries nonvisualized.
--- NOTE | 2025-01-11 13:22 | LDN2 ---
Labor and Delivery Note Date 01/11/25 Age 29 2 Para 2 EDC 3-15 EGA 16wks Diagnosis demise,sab,vag bleeding,thyroid ds Vaginal Delivery: VTX Vacuum Assisted: No Placenta: Manual Sex: Female Apgars 0/0 Nuchal Cord Transected: No Amniotic Fluid: Clear Anesthesia none Episiotomy: No Extension: No Repaired with none EBL 300ml Labs Blood Bank 01/11/25 06:31: Blood Type O POSITIVE Complications none Conditions stable Comments/Significant Med Kwesi placenta partially removed ,sono reveals 5 cm thickness in endometrium Visit Coding OBGYN Date of Service: Jan 11, 2025 Billing Provider: GRICELDA ALBARRAN DO TIRE MOLD ENGRAVER Common Visit Codes: 00497-[id number] INP/OBS CARE (HIGH) TIRE MOLD ENGRAVER Procedure Codes: 34729-TFX DELIVERY ONLY GRICELDA ALBARRAN DO Jan 11, 2025 13:22
--- NOTE | 2025-01-11 13:35 | DVHHP ---
ADMIT DATE: 01/11/2025 CHIEF COMPLAINT: Retained placental tissue. HISTORY OF PRESENT ILLNESS: The patient is a 29-year-old 2 para 2, status post spontaneous AB for 16-week fetus baby girl with partial retained placenta. Subsequently, the patient is being taken for D and C, suction curettage. PAST MEDICAL HISTORY: Thyroid disease. PAST SURGICAL HISTORY: None. SOCIAL HISTORY: None. FAMILY HISTORY: None. OBSTETRIC/GYNECOLOGIC HISTORY: One vaginal delivery. One miscarriage, current miscarriage. REVIEW OF SYSTEMS: Consistent with HPI. PHYSICAL EXAMINATION: VITAL SIGNS: Stable, afebrile. HEENT: Within normal limits. CARDIOVASCULAR: Regular rate and rhythm. LUNGS: Clear to auscultation. BREASTS: Symmetrical. No masses. ABDOMEN: Soft and nontender. PELVIC: Cervix 1 cm. Uterus 16-week size. EXTREMITIES: No clubbing, cyanosis, or edema. IMPRESSION: Retained placental tissue. PLAN: D and C, suction curettage. Informed consent obtained. Risks and complications of surgery discussed with the patient. Possible blood transfusion and infection discussed with the patient. The patient fully understands. She wishes to proceed with planned procedure. DO MAX Rodriguez TID: [id number] RECEIPT: [id number]
[2025-01-11] MEDS ORDERED: PROPOFOL 10 MG/ML 20 ML IV ONE (13:59)
[2025-01-11] MEDS ORDERED: fentaNYL CITRATE 100 MCG/2 ML VL ONE (13:59)
[2025-01-11] MEDS ORDERED: KETAMINE 50mg/ML 1ml syringe ONE (13:59)
[2025-01-11] MEDS ORDERED: LIDOCAINE 1% (LOCAL ANESTH.) PF 5ml SDV ONE (13:59)
[2025-01-11] MEDS ORDERED: SODIUM CHLORIDE LOCK 10 ML ONE (13:59)
[2025-01-11] MEDS ORDERED: ONDANSETRON HCL 4 MG/2 ML VIAL ONE (13:59)
[2025-01-11] MEDS ORDERED: MIDAZOLAM HCL 2MG/2ML 2ml VIAL (1mg/ml) ONE (13:59)
[2025-01-11] MEDS ORDERED: MORPHINE SULFATE 4 MG/ML SYR/VIAL IV PRN (14:00)
[2025-01-11] MEDS ORDERED: METOCLOPRAMIDE HCL 5MG/ml INJ 2ml VIAL IV PRN (14:00)
[2025-01-11] MEDS ORDERED: HYDROmorphone HCL 2 MG/ML VL/or syr IV PRN ×2 (14:00)
[2025-01-11] MEDS ORDERED: OXYTOCIN 10UNIT/ML 1ML VIAL ONE (14:20)
[2025-01-11 14:38] VITALS: PULSE 92; RESP 15
[2025-01-11] MEDS ORDERED: MORPHINE SULFATE INJ 2 MG/ml SYRG IV PRN (14:45)
[2025-01-11] MEDS: LACT. RINGERS/OXYTOCIN 20UNITS 500 ML IV ONE ×2 (14:57→15:00)
[2025-01-11] MEDS: LIDOCAINE 2%HCL (LOCAL ANESTH.) INJ 20ML MDV IJ PRN (15:09)
[2025-01-11] MEDS: TERBUTALINE SULFATE 1 MG/ML 1ML VIAL SC PRN (15:09)
[2025-01-11 15:40] VITALS: BP 115/68; PULSE 90; RESP 14; TEMP 98; O2SAT 100
--- NOTE | 2025-01-11 15:42 | DVHOP2 ---
Operative Report DATE OF OPERATION: 01/11/25 PREOPERATIVE DIAGNOSES: Incomplete POSTOPERATIVE DIAGNOSES: Incomplete SURGEON: Gricelda Villar D.O. ANESTHESIOLOGIST: nieves TYPE OF ANESTHESIA : MAC CONSENT: The patient was informed of the risks and benefits of the procedure. The patient was informed of the risks and benefits of the procedure. These include but are not limited to , complications of anesthesia, postoperative infection, incomplete relief of symptoms, recurrence of symptoms, damage to blood vessels, nerves and tendons, deep venous thrombosis, pulmonary embolism and possible need for repeat surgery in the future. FINDINGS: Cervix is 1 cm and uterus 14 weeks' size. Adnexa nonpalpable. TISSUE TO PATHOLOGY: POC. PROCEDURES: Dilatation and curettage and suction curettage. PROCEDURE IN DETAIL: The patient was taken to the operating room where she was placed under MAC anesthesia. The patient was then prepped and draped in the usual sterile manner in dorsal lithotomy position. Bladder was emptied using straight catheter. Examination under anesthesia revealed the above findings. A weighted speculum was placed in the vagina. Anterior lip of the cervix was grasped using a single-tooth tenaculum. Cervix was dilated. Uterus was sounded to 13 cm. Products of conception were evacuated using suction curette, size #7, sharp curetting of endometrial cavity was done. The patient tolerated the procedure well. All the instruments were removed from vagina and cervix. The patient was taken to the recovery room in a stable condition. ESTIMATED BLOOD LOSS: 200 mL Visit Coding OBGYN Date of Service: Jan 11, 2025 Billing Provider: GRICELDA VILLAR DO SOLAR ENERGY ENGINEER Common Visit Codes: [id number] OBS CARE (HIGH) SOLAR ENERGY ENGINEER Procedure Codes: 04038-DO OF INCOMP AB,ANY TRIMESTER GRICELDA VILLAR DO Jan 11, 2025 15:42
--- NOTE | 2025-01-11 15:43 | POSTOP ---
Post-Operative Note Post-Operative Note Preop Diagnosis incompelet ab Postop Diagnosis: same Operation performed d and c,suction currettage Specimen poc Anesthesia: Mac Anesthesiologist: nieves Blood Loss(fluid mgmt) 200ml Surgeon Gricelda Villar Implant na Complications & Mgmt none Date 01/11/25 Time 15:42 Visit Coding OBGYN Date of Service: Jan 11, 2025 Billing Provider: GRICELDA VILLAR DO HANGER Common Visit Codes: [id number] INP/OBS CARE(HIGH) HANGER Procedure Codes: 85164-VG OF INCOMP AB,ANY TRIMESTER GRICELDA VILLAR DO Jan 11, 2025 15:43
[2025-01-11] MEDS: KETOROLAC TROMETH 30 MG/ML 1ML VIAL IV ONE (15:58)
[2025-01-11] MEDS ORDERED: DOCU-94 PO (16:54)
[2025-01-11] MEDS ORDERED: IBUP-1456 PO (16:54)
[2025-01-11] MEDS ORDERED: HYDR-4902 PO (16:54)
--- NOTE | 2025-01-20 10:48 | DVHDS2 ---
Physician Discharge Progress N Final Diagnosis: sab at 16 wks ,s/p d and c,suction for retained placenta Operations or Procedures: Operations or Procedures d and c,suction currettage Condition on Discharge: Good Disposition: Home Discharge Instructions: Diet: Regular Activity: No Restrictions, As Tolerated Medications: motrin Follow Up Care: Specialist: 1w Discharge Statement: "Patient was advised to return to the ER or call 911 if any headaches, dizziness, shortness of breath, chest pain, abdominal pain, bleeding, fevers, or worsening of medical condition. Patient was counseled about treatment plan, medications, possible side effects, patientverbalized understanding. All questions were answered to the best of my ability. This discharge took greater then 30 minutes in planning, reviewing documentation, counseling the patient, and discussing with other team members." Visit Coding OBGYN Date of Service: Jan 11, 2025 Billing Provider: GRICELDA ALBARRAN DO NAIL TECHNICIAN Common Visit Codes: [id number] OBS CARE (HIGH) NAIL TECHNICIAN Procedure Codes: 52987-BN OF INCOMP AB,ANY TRIMESTER GRICELDA ALBARRAN DO Jan 20, 2025 10:47
== END 2025-01-11 18:01 | disposition home or self-care (01) ==
LOC: EDUNIT# 06:02 → EDBD 06:02 → ER 06:02 → LDRP 07:20
PROVIDERS: ADMIT Obstetrics & Gynecology; ATTEND Obstetrics & Gynecology
DX: O03.4 Incomplete spontaneous abortion without complication (principal); O99.282 Endocrine, nutritional and metabolic diseases complicating pregnancy, second trimester; E03.9 Hypothyroidism, unspecified; Z3A.16 16 weeks gestation of pregnancy; Z98.890 Other specified postprocedural states
CPT/HCPCS: 36415; 59812; 76805; 80053; 84702; 85025; 85610; 85730; 86780; 86803; 86850; 86900; 86901; 88305; 88307; 96361; 96365; 96366; 96367; 96375; 96376; 99291; G0378; J0595; J0690; J1885; J2250; J2405; J2590; J2704; J3010; 59409; 76856; 94760; 96374

== ENCOUNTER 2025-02-01 14:27 | Emergency (ER) | payer MEDICAID ==
[~2025-02-01] VITALS: Ht 149.9 cm; Wt 82.0 kg
[~2025-02-01 14:27] MED LIST changes: -CEPH250C PO; +DOCU-94 PO; +HYDR-4902 PO; +IBUP-1456 PO
[2025-02-01 14:29] VITALS: BP 133/88; PULSE 98; RESP 15; TEMP 97.3; O2SAT 99
--- NOTE | 2025-02-01 15:10 | ED.PDOC ---
History of Present Illness HPI Comments 29F presents to the ER w/ prior MHx of DNC, recent miscarriage and the c/c of ABD pain. Pt reports on having the miscarriage during the beginning of the month at [facility]. Pt started to have ABD bloating w/ pain for 1.5 weeks. Pt notes on being perscribed NORCO but running out recently. Family Hx of gastritis/DM. Denies any other symptoms at this time. Denies chills, fever, N/V/D, SOB, CP. Denies any other associated symptom's, modifiers, or recent injuries or sick contact at this time. Chief Complaint: Abdominal Pain Time Seen by MD: 15:00 Primary Care Provider: HUGO Mas Notes: Nurses Notes, Medications, Allergies Allergies: Coded Allergies: NO KNOWN ALLERGIES (Unverified , 02/26/21) Home Meds Active Scripts Docusate Sodium (Colace) 100 Mg Cap, 1 CAP PO BID PRN, #30 CAP Prov:JD [facility] 01/11/25 Hydrocodone-Acetaminophen (Hydrocodone Bitartrate/AC 5-325 mg) 1 Tab Tab, 1 TAB PO Q6HR PRN for 5 Days, #20 TAB Prov:JD [facility] 01/11/25 Ibuprofen (Ibuprofen) 800 Mg Tab, 1 TAB PO TID, #60 TAB 0 Refills Prov:JD [facility] 01/11/25 Information Source: Patient Mode of Arrival: Ambulatory Severity: Moderate Timing: Days Duration: Since onset, Days Prehospital treatment: None Past Medical History PAST MEDICAL HISTORY: Thyroid Past Medical History (Other): DNC Surgical History: Denies all surgeries RELAY TESTER HELPER History: No Pertinent RELAY TESTER HELPER History Family History Family History: Reviewed,noncontributory to illness, Family hx of DM Family History (Other): Gastritis Social History Smoker: Non-Smoker Alcohol: Denies ETOH Use Drugs: Denies Drug Use Lives In: Home Constitutional: denies: chills, diaphoresis, fatigue, fever, malaise, sweats, weakness, others EENTM: denies: blurred vision, double vision, ear bleeding, ear discharge, ear drainage, ear pain, ear ringing, eye pain, eye redness, hearing loss, mouth pain, mouth swelling, nasal discharge, nose bleeding, nose congestion, nose pain, photophobia, tearing, throat pain, throat swelling, voice changes, others Respiratory: denies: cough, hemoptysis, orthopnea, SOB at rest, shortness of breath, SOB with excertion, stridor, wheezing, others Cardiovascular: denies: chest pain, dizzy spells, diaphoresis, Dyspnea on exertion, edema, irregular heart beat, left arm pain, lightheadedness, palpitations, PND, syncope, others Gastrointestinal: reports: abdomen distended, abdominal pain; denies: blood streaked bowels, constipated, diarrhea, dysphagia, difficulty swallowing, hematemesis, melena, nausea, poor appetite, poor fluid intake, rectal bleeding, rectal pain, vomiting, others Genitourinary: denies: abnormal vagina bleeding, burning, dyspareunia, dysuria, flank pain, frequency, hematuria, incontinence, pain, , vagina discharge, urgency, others Neurological: denies: dizziness, fainting, headache, left sided numbness, left sided weakness, numbness, paresthesia, pre-existing deficit, right sided numbness, right sided weakness, seizure, speech problems, tingling, tremors, weakness, others Musculoskeletal: denies: back pain, gout, joint pain, joint swelling, muscle pain, muscle stiffness, neck pain, others Integumetry: denies: bruises, change in color, change in hair/nails, dryness, laceration, lesions, lumps, rash, wounds, others Allergic/Immunocompromised: denies: Difficulty Healing, Frequent Infections, Hives, Itching, others Hematologic/Lymphatic: denies: anemia, blood clots, easy bleeding, easy br uising, swollen glands, others Endocrine: denies: excessive hunger, excessive sweating, excessive thirst, excessive urination, flushing, intolerance to cold, intolerance to heat, unexplained weight gain, unexplained weight loss, others Psychiatric: denies: anxiety, bipolar disorder, depression, hopeless, panic disorder, schizophrenia, sleepless, suicidal, others All Other Systems: Reviewed and Negative Physical Exam General Appearance: No Apparent Distress HEENT: Normal ENT Inspection, Pharynx Normal, TMs Normal Neck: Full Range of Motion, Non-Tender, Normal, Normal Inspection Respiratory: Chest Non-Tender, Lungs Clear, No Accessory Muscle Use, No Respiratory Distress, Normal Breath Sounds Cardiovascular: No Edema, No JVD, No Murmur, No Gallop, Normal Peripheral Pulses, Regular Rate/Rhythm Breast Exam: Deferred Gastrointestinal: No Organomegaly, Non Tender, No Pulsatile Mass, Normal Bowel Sounds, Soft Genitalia: Deferred Pelvic: Deferred Rectal: Deferred Extremities: No calf tenderness, Normal capillary refill, Normal inspection, Normal range of motion, Non-tender, No pedal edema Musculoskeletal : Apperance: Normal Neurologic: Alert, system support specialist II-XII nml as Tested, No Motor Deficits, Normal Affect, Normal Mood, No Sensory Deficits Cerebellar Function: Normal Reflexes: Normal Skin: Dry, Normal Color, Warm Lymphatic: No Adenopathy Was a procedure done? Was a procedure done?: No Differential Dx Considerations may include: Bowel obstruction, generalized weakness, UTI, products of conception X-Ray, Labs, Meds, VS Vital Signs Date Time Temp Pulse Resp B/P (MAP) Pulse Ox O2 Delivery O2 Flow Rate FiO2 02/01/25 14:29 97.3 98 15 133/88 99 97.3 Lab Test 02/01/25 15:23 Range/Units White Blood Count 7.5 4.4-10.8 10^3/uL Red Blood Count 4.23 4.0-5.20 10^6/uL Hemoglobin 11.8 L 12.2-16.2 g/dL Hematocrit 35.2 L 36.0-46.0 % Mean Corpuscular Volume 83.1 80.0-100.0 fL Mean Corpuscular Hemoglobin 28.0 28.0-32.0 pg Mean Corpuscular Hemoglobin Concent 33.6 32.0-36.0 g/dL Red Cell Distribution Width 14.8 H 11.8-14.3 % Platelet Count 364 140-450 10^3/uL Mean Platelet Volume 8.3 6.9-10.8 fL Neutrophils (%) (Auto) 53.5 37.0-80.0 % Lymphocytes (%) (Auto) 37.3 10.0-50.0 % Monocytes (%) (Auto) 5.9 0.0-12.0 % Eosinophils (%) (Auto) 2.9 0.0-7.0 % Basophils (%) (Auto) 0.4 0.0-2.0 % Neutrophils # (Auto) 4.0 1.6-8.6 10 ^3/uL Lymphocytes # (Auto) 2.8 0.4-5.4 10 ^3/uL Monocytes # (Auto) 0.4 0-1.3 10 ^3/uL Eosinophils # (Auto) 0.2 0-0.8 10 ^3/uL Basophils # (Auto) 0 0-0.2 10 ^3/uL Nucleated Red Blood Cells 0.0 % Sodium Level 141 136-145 mmol/L Potassium Level 4.5 3.5-5.1 mmol/L Chloride Level 107 98-107 mmol/L Carbon Dioxide Level 27 20-31 mmol/L Anion Gap 7 5-15 Blood Urea Nitrogen 10 9-23 mg/dL Creatinine 0.53 L 0.550-1.02 mg/dL Glomerular Filtration Rate Calc 127 >90 mL/min BUN/Creatinine Ratio 18.9 10.0-20.0 Serum Glucose 90 74-106 mg/dL Calcium Level 8.8 8.7-10.4 mg/dL Beta HCG, Quantitative 5.6 H 1.5-4.2 mIU/mL CBC is within normal limits The chemistry panel is within normal limits The quantitative hCG is 5.6 At this time, the patient will be discharged The patient will return to the emergency department's condition worsens Time of 1ST Reevaluation: 15:30 Reevaluation 1ST: Unchanged Time of 2ND Reevaluation: 17:56 Reevaluation 2ND: Improved Patient Education/Counseling: Diagnosis, Treatment, Prognosis, Need For Follow Up Family Education/Counseling: No Family Present SEPSIS Sepsis Screen Date sepsis recognized/suspect: Feb 01, 2025 Time Sepsis recognized/suspect: 1431 Recent Procedure: No (N) On Antibiotic Therapy: No Respiratory Rate >20: No Heart Rate >90: No Temp<36 C (96.8 F) or >38.3 C: No SBP <90 or MAP <65 mmHG: No New Acute Mental Status Change: No Is the patient on CPAP, BIPAP,: No Vital Signs Date Time Temp Pulse Resp B/P (MAP) Pulse Ox O2 Delivery O2 Flow Rate FiO2 02/01/25 14:29 97.3 98 15 133/88 99 97.3 Laboratory Tests Test 02/01/25 15:23 White Blood Count 7.5 10^3/uL (4.4-10.8) Departure 1 Departure Time of Disposition: 17:55 Impression: Primary Impression: Abdominal pain of unknown etiology Disposition: HOME / SELF CARE / HOMELESS Condition: Fair Discharged With: Self Critical Care Note Critical Care Time?: No Stability Stability form required: No Heart Score Heart Score: Heart Score Response (Comments) Value History N/A 0 EKG N/A 0 Age N/A 0 Risk Factors N/A 0 Troponin N/A 0 Total 0 I personally scribed for STEVEN VALENCIA MD ([email or web address]) on 02/01/25 at 15:10. Electronically submitted by Phuc Elkins ([email or web address]). STEVEN VALENCIA MD Feb 01, 2025 15:10
[2025-02-01 15:46] LABS: Hematocrit 35.2 % (36.0-46.0); Hemoglobin 11.8 g/dL (12.2-16.2); Mean Corpuscular Hemoglobin 28.0 pg (28.0-32.0); Mean Corpuscular Volume 83.1 fL (80.0-100.0); Nucleated Red Blood Cells % 0.0 %
[2025-02-01 15:48] LABS: Potassium 4.5 mmol/L (3.5-5.1); Sodium 141 mmol/L (136-145)
[2025-02-01 15:49] LABS: Anion Gap 7 (5-15); Calcium 8.8 mg/dL (8.7-10.4); Carbon Dioxide 27 mmol/L (20-31)
[2025-02-01 15:51] LABS: Chloride 107 mmol/L (98-107)
[2025-02-01 15:54] LABS: BUN/Creatinine Ratio 18.9 (10.0-20.0); Blood Urea Nitrogen 10 mg/dL (9-23); Glucose 90 mg/dL (74-106)
== END 2025-02-01 17:57 | disposition home or self-care (01) ==
LOC: ER 14:27
DX: R10.9 Unspecified abdominal pain (principal); E03.9 Hypothyroidism, unspecified
CPT/HCPCS: 36415; 80048; 84702; 85025